=== PATIENT | male | born 1945 | race Caucasian/White ===

== ENCOUNTER 2016-09-04 02:58 | Emergency (ER) | payer MEDICARE, MEDICAID ==
[~2016-09-04] VITALS: Ht 175.3 cm; Wt 90.9 kg
[~2016-09-04 02:58] MED LIST: ALD2525 PO; ATOR10TA PO; DILANTIN PO; FESO4TAB PO; MEMA28CA PO; TERA2CAP53 PO
[2016-09-04] MEDS ORDERED: ONDANSETRON HCL 4MG/2ML VIAL IV STA (04:30)
[2016-09-04] MEDS ORDERED: SODIUM CHLORIDE 0.9% 1,000 ML IV ONE (04:30)
[2016-09-04] MEDS ORDERED: KETOROLAC 30MG/ML VIAL IV STA (04:30)
[2016-09-04 04:53] LABS: BASOPHILS % 0.4 % (0.0-2.0); EOSINOPHILS % 1.4 % (0.0-5.0); HEMOGLOBIN. 12.1 g/dL (14.0-18.0); MEAN CORPUSCULAR HEMOGLOBIN 30.7 pg (28.0-32.0); MEAN CORPUSCULAR HGB CONC 34.7 g/dL (31.0-37.0); MEAN CORPUSCULAR VOLUME 88.7 fL (80.0-94.0); MEAN PLATELET VOLUME 9.5 fl (7.4-10.4); MONOCYTES % 7.9 % (2.0-8.0); NEUTROPHILS % 66.3 % (40.0-76.0); PLATELET 143 x1000/uL (130-400); RED BLOOD CELL COUNT 3.95 mill/uL (4.7-6.1); RED CELL DISTRIBUTION WIDTH 14.7 % (11.6-14.6); WHITE BLOOD COUNT 5.6 x1000/uL (4.5-11.0)
[2016-09-04 04:53] LABS: CLARITY URINE CLEAR (CLEAR); COLOR URINE YELLOW (YELLOW); GLUCOSE URINE NEGATIVE (NEGATIVE); KETONES URINE NEGATIVE (NEGATIVE); LEUKOCYTE ESTERASE URINE NEGATIVE (NEGATIVE); NITRITE URINE NEGATIVE (NEGATIVE); OCCULT BLOOD URINE NEGATIVE (NEGATIVE); PH URINE 7.5 (4.5-8.0); PROTEIN URINE NEGATIVE (NEGATIVE); SPECIFIC GRAVITY URINE 1.016 (1.005-1.030); UROBILINOGEN URINE 0.2 E.U./dL (0.2-1.0)
[2016-09-04 04:59] LABS: ALANINE AMINOTRANSFERASE 10 IU/L (13-61); ALBUMIN 3.3 g/dL (3.4-5.0); ANION GAP 13; CALCIUM 8.5 mg/dL (8.5-10.1); CARBON DIOXIDE 26 mEq/L (21-32); CHLORIDE 107 mEq/L (98-107); INDEX HEMOLYSI 1 (1-3); INDEX ICTERIC 1 (1-4); INDEX LIPEMIC 1 (1-3); LIPASE 108 IU/L (73-393); UREA NITROGEN BLOOD 19 mg/dL (7-21); eGFR > 60 mL/min (>60)
[2016-09-04] MEDS ORDERED: MORPHINE SULFATE 4 MG/ML CPJ (NOT FOR IM USE) IV ONE (05:45)
[2016-09-04 06:00] VITALS: BP 141/85
== END 2016-09-04 06:38 | disposition home or self-care (01) ==
LOC: ER 02:59
DX: K40.90 Unilateral inguinal hernia, without obstruction or gangrene, not specified as recurrent (principal); I10 Essential (primary) hypertension; Z79.899 Other long term (current) drug therapy; Z86.73 Personal history of transient ischemic attack (TIA), and cerebral infarction without residual deficits
CPT/HCPCS: 36415; 74176; 80053; 81003; 83690; 85025; 96361; 96374; 96375; 99285; J1885; J2270; J2405; J7030

== ENCOUNTER 2017-01-16 07:06 | Inpatient (IN) | payer MEDICARE, MEDICAID ==
[~2017-01-16] VITALS: Ht 175.3 cm; Wt 103.9 kg
[~2017-01-16 07:06] MED LIST changes: +TERA2CAP4 PO; -TERA2CAP53 PO
[2017-01-16] MEDS ORDERED: ONDANSETRON HCL 4MG/2ML VIAL IV ONE (07:45)
[2017-01-16 07:58] LABS: BASOPHILS % 0.7 % (0.0-2.0); HEMATOCRIT. 34.8 % (42.0-52.0); HEMOGLOBIN. 11.9 g/dL (14.0-18.0); LYMPHOCYTES % 21.4 % (20.0-50.0); MEAN CORPUSCULAR HEMOGLOBIN 30.6 pg (28.0-32.0); MEAN CORPUSCULAR VOLUME 89.3 fL (80.0-94.0); MEAN PLATELET VOLUME 9.8 fl (7.4-10.4); MONOCYTES % 7.2 % (2.0-8.0); NEUTROPHILS % 69.7 % (40.0-76.0); PLATELET 155 x1000/uL (130-400); RED CELL DISTRIBUTION WIDTH 13.6 % (11.6-14.6)
[2017-01-16 08:03] LABS: PROTHROMBIN TIME 10.8 sec (9.4-11.6)
[2017-01-16 08:13] LABS: CARBON DIOXIDE 29 mEq/L (21-32); CHLORIDE 107 mEq/L (98-107); TROPONIN I < 0.02 ng/mL (0.00-0.04)
[2017-01-16] MEDS ORDERED: MORPHINE SULFATE 4 MG/ML CPJ (NOT FOR IM USE) IV ONE (09:15)
[2017-01-16] MEDS ORDERED: DOCUSATE SODIUM 100MG CAPSULE PO PRN (11:30)
[2017-01-16] MEDS ORDERED: IPRATROPIUM/ALBUTEROL 0.5-3(2.5)MG/3ML NEB INH PRN (11:30)
[2017-01-16] MEDS ORDERED: GUAIFENESIN 200MG/10ML SUGAR FREE UDC PO PRN (11:30)
[2017-01-16] MEDS ORDERED: NA PHOS,M-B/NA PHOS,DI-BA ENEMA 118ML PR PRN (11:30)
[2017-01-16] MEDS ORDERED: MAGNESIUM/ALUMINUM HYDROXIDE/SIMETHICONE 30ML UDC PO PRN (11:30)
[2017-01-16] MEDS ORDERED: CLONIDINE 0.1MG TABLET PO PRN (11:30)
[2017-01-16] MEDS ORDERED: DIPHENHYDRAMINE 50MG/ML VIAL IV PRN (11:30)
[2017-01-16] MEDS ORDERED: ONDANSETRON HCL 4MG/2ML VIAL IV PRN (11:30)
[2017-01-16] MEDS ORDERED: ACETAMINOPHEN 325MG TABLET PO PRN (11:30)
[2017-01-16 14:43] VITALS: BP 143/85
[2017-01-16 15:08] VITALS: BP 143/85
[2017-01-16] MEDS: NITROGLYCERIN 0.4MG TABLET SL SL PRN ×2 (15:13→15:44)
[2017-01-16] MEDS: ENOXAPARIN 30MG/0.3ML SYR SUBCUT SCH (15:43)
[2017-01-16 16:00] VITALS: BP 135/78
[2017-01-16 16:51] LABS: *AMPHETAMINES SCREEN URINE NEGATIVE (NEGATIVE); *BARBITURATES SCREEN URINE NEGATIVE (NEGATIVE); *BENZODIAZEPINES SCREEN URINE NEGATIVE (NEGATIVE); *COCAINE SCREEN URINE NEGATIVE (NEGATIVE); CANNABINOID URINE SCREEN NEGATIVE (NEGATIVE); METHADONE URINE SCREEN NEGATIVE (NEGATIVE); OPIATES URINE SCREEN PRESUMTIVE POSITIVE (NEGATIVE); PHENCYCLIDINE URINE SCREEN NEGATIVE (NEGATIVE)
[2017-01-16] MEDS: KETOROLAC 15MG/ML VIAL IV PRN (18:05)
[2017-01-16 18:10] LABS: CREATINE KINASE 52 IU/L (39-308); CREATINE KINASE MB FRACTION < 0.5 ng/mL (0.5-3.6); TROPONIN I < 0.02 ng/mL (0.00-0.04)
[2017-01-16 20:00] VITALS: BP 109/71
[2017-01-16] MEDS ORDERED: ZOLPIDEM TARTRATE 5MG TABLET PO PRN (21:00)
[2017-01-16] MEDS: FAMOTIDINE 20MG/2ML VIAL IV SCH (21:28)
[2017-01-17] VITALS: BP 122/76
[2017-01-17] MEDS: KETOROLAC 15MG/ML VIAL IV PRN ×2 (00:36→06:29)
[2017-01-17 01:53] LABS: CREATINE KINASE 48 IU/L (39-308); CREATINE KINASE MB FRACTION < 0.5 ng/mL (0.5-3.6); TROPONIN I < 0.02 ng/mL (0.00-0.04)
[2017-01-17 04:00] VITALS: BP 117/62
[2017-01-17] MEDS: ENOXAPARIN 30MG/0.3ML SYR SUBCUT SCH ×2 (06:28→17:29)
[2017-01-17 08:00] VITALS: BP 131/77
[2017-01-17] MEDS: ASPIRIN 325MG EC TABLET PO SCH (08:55)
[2017-01-17] MEDS: FAMOTIDINE 20MG/2ML VIAL IV SCH ×2 (09:24→21:22)
[2017-01-17 12:00] VITALS: BP 102/70
[2017-01-17 16:00] VITALS: BP 126/83
[2017-01-17 20:00] VITALS: BP 149/74
[2017-01-18] VITALS: BP 106/68
[2017-01-18 04:00] VITALS: BP 117/75
[2017-01-18] MEDS: ENOXAPARIN 30MG/0.3ML SYR SUBCUT SCH ×2 (06:00→17:22)
[2017-01-18 08:00] VITALS: BP 123/81
[2017-01-18] MEDS: ASPIRIN 325MG EC TABLET PO SCH (08:40)
[2017-01-18] MEDS: FAMOTIDINE 20MG/2ML VIAL IV SCH ×2 (09:05→21:58)
[2017-01-18] MEDS: KETOROLAC 15MG/ML VIAL IV PRN ×2 (10:39→17:32)
[2017-01-18 12:00] VITALS: BP 129/83
[2017-01-18 16:00] VITALS: BP 126/75
[2017-01-18] MEDS ORDERED: DIPHENOXYLATE/ATROPINE 2.5/0.025MG TABLET PO PRN (16:00)
[2017-01-18 20:00] VITALS: BP 152/62
[2017-01-18] MEDS ORDERED: ATORVASTATIN CALCIUM 20MG TABLET PO SCH (21:00)
[2017-01-19] VITALS: BP 108/63
[2017-01-19 04:00] VITALS: BP 138/74
[2017-01-19] MEDS: ENOXAPARIN 30MG/0.3ML SYR SUBCUT SCH (05:08)
[2017-01-19 08:00] VITALS: BP 132/77
[2017-01-19] MEDS: ASPIRIN 325MG EC TABLET PO SCH (08:50)
[2017-01-19] MEDS: FAMOTIDINE 20MG/2ML VIAL IV SCH (09:30)
[2017-01-19 11:11] VITALS: BP 130/78
[2017-01-19 12:00] VITALS: BP 124/74
== END 2017-01-19 12:55 | disposition home health service (06) | DRG 313 ==
LOC: ER 07:32 → 7WST 09:49 → EDBEDREQ 09:53 → SUPCPDRO 11:26 → ENRESERV 11:31
PROVIDERS: ADMIT Internal Medicine; ATTEND Internal Medicine
DX: R07.89 Other chest pain (principal); I25.10 Atherosclerotic heart disease of native coronary artery without angina pectoris; E44.1 Mild protein-calorie malnutrition; I48.91 Unspecified atrial fibrillation; G40.909 Epilepsy, unspecified, not intractable, without status epilepticus; I69.351 Hemiplegia and hemiparesis following cerebral infarction affecting right dominant side; E78.5 Hyperlipidemia, unspecified; I10 Essential (primary) hypertension; I44.0 Atrioventricular block, first degree; I69.354 Hemiplegia and hemiparesis following cerebral infarction affecting left non-dominant side; Z79.82 Long term (current) use of aspirin; Z68.33 Body mass index [BMI] 33.0-33.9, adult; Z79.899 Other long term (current) drug therapy
CPT/HCPCS: 36415; 70450; 70551; 71010; 80053; 80061; 80305; 82550; 82553; 83036; 83690; 83880; 84484; 85025; 85610; 93005; 93306; 93880; 93970; 96374; 96375; 97112; 97162; 97166; 97530; 99285; J1650; J1885; J2270; J2405; J3490; J7620

== ENCOUNTER 2017-08-09 09:13 | Emergency (ER) | payer MEDICARE, MEDICAID ==
[~2017-08-09] VITALS: Ht 175.3 cm; Wt 114.0 kg
[~2017-08-09 09:13] MED LIST changes: -ALD2525 PO; -FESO4TAB PO; -MEMA28CA PO; -TERA2CAP4 PO
[2017-08-09] MEDS ORDERED: ALD2525 PO (09:23)
[2017-08-09] MEDS ORDERED: MEMA28CA PO (09:24)
[2017-08-09 10:05] LABS: BASOPHILS % 0.4 % (0.0-2.0); EOSINOPHILS % 0.5 % (0.0-5.0); HEMATOCRIT. 38.4 % (42.0-52.0); HEMOGLOBIN. 13.1 g/dL (14.0-18.0); LYMPHOCYTES % 23.1 % (20.0-50.0); MEAN CORPUSCULAR HEMOGLOBIN 31.4 pg (28.0-32.0); MEAN CORPUSCULAR VOLUME 92.1 fL (80.0-94.0); MEAN PLATELET VOLUME 9.6 fl (7.4-10.4); MONOCYTES % 6.5 % (2.0-8.0); NEUTROPHILS % 69.5 % (40.0-76.0); PLATELET 160 x1000/uL (130-400); RED BLOOD CELL COUNT 4.17 mill/uL (4.7-6.1); RED CELL DISTRIBUTION WIDTH 14.6 % (11.6-14.6)
[2017-08-09 10:09] LABS: CHLORIDE 105 mEq/L (98-107)
[2017-08-09 10:10] LABS: PROTHROMBIN TIME 10.3 sec (9.4-11.6)
[2017-08-09] MEDS ORDERED: OXYCODONE HCL/ACETAMINOPHEN 5/325MG TABLET PO ONE (10:45)
[2017-08-09 12:44] VITALS: BP 132/78
== END 2017-08-09 12:53 | disposition home or self-care (01) ==
LOC: ER 09:21
DX: R51 Headache (principal); I48.91 Unspecified atrial fibrillation; I10 Essential (primary) hypertension; I25.10 Atherosclerotic heart disease of native coronary artery without angina pectoris; Z86.73 Personal history of transient ischemic attack (TIA), and cerebral infarction without residual deficits; I67.82 Cerebral ischemia
CPT/HCPCS: 36415; 70450; 71045; 80053; 82962; 83880; 84484; 85025; 85610; 93005; 99285

== ENCOUNTER 2017-08-23 10:43 | Emergency (ER) | payer MEDICARE, MEDICAID ==
[~2017-08-23] VITALS: Ht 162.6 cm; Wt 105.0 kg
[~2017-08-23 10:43] MED LIST changes: +ALD2525 PO; +MEMA28CA PO
[2017-08-23] MEDS ORDERED: TRAMADOL 50MG TABLET PO ONE (16:00)
[2017-08-23 16:47] VITALS: BP 152/89
== END 2017-08-23 15:04 | disposition home or self-care (01) ==
LOC: ER 12:15
DX: M79.604 Pain in right leg (principal); I10 Essential (primary) hypertension; I69.351 Hemiplegia and hemiparesis following cerebral infarction affecting right dominant side; Z90.49 Acquired absence of other specified parts of digestive tract
CPT/HCPCS: 93971; 99284

== ENCOUNTER 2019-08-05 06:14 | Inpatient (IN) | payer MEDICARE, MEDICAID ==
[~2019-08-05] VITALS: Ht 177.8 cm; Wt 100.2 kg
[~2019-08-05 06:14] MED LIST changes: +ASPI-1497 MT; +HYDR200T35 PO
[2019-08-05] MEDS ORDERED: KETOROLAC 30MG/ML VIAL IV STA (06:39)
[2019-08-05] MEDS ORDERED: MORPHINE SULFATE 4 MG/ML CPJ (NOT FOR IM USE) IV STA (06:39)
[2019-08-05] MEDS ORDERED: ONDANSETRON HCL 4MG/2ML INJ IV STA (06:39)
[2019-08-05 07:08] LABS: HEMATOCRIT. 40.5 % (42.0-52.0); HEMOGLOBIN. 13.8 g/dL (14.0-18.0); MEAN CORPUSCULAR HEMOGLOBIN 32.8 pg (28.0-32.0); MEAN CORPUSCULAR VOLUME 96.1 fL (80.0-94.0); MEAN PLATELET VOLUME 10.7 fl (7.4-10.4); PLATELET 149 x1000/uL (130-400); RED BLOOD CELL COUNT 4.22 mill/uL (4.7-6.1); RED CELL DISTRIBUTION WIDTH 15.5 % (11.6-14.6)
[2019-08-05 07:13] LABS: CHLORIDE 104 mEq/L (98-107)
[2019-08-05 07:17] LABS: ETHANOL BLOOD < 10 mg/dL; PARTIAL THROMBOPLASTIN TIME 28.5 sec (23.4-31.0); PROTHROMBIN TIME 10.6 sec (9.6-11.0)
[2019-08-05 07:30] LABS: PLATELET ESTIMATE NORMAL
[2019-08-05] MEDS ORDERED: LORAZEPAM 2MG/ML CPJ IV ONE ×2 (09:15→10:00)
[2019-08-05] MEDS ORDERED: SODIUM CHLORIDE 0.9% 250 ML IV ONE (09:47)
[2019-08-05] MEDS ORDERED: LEVETIRACETAM 1000MG/100ML 100 ML IV ONE (10:00)
[2019-08-05] MEDS ORDERED: ONDANSETRON HCL 4MG/2ML INJ IV ONE (10:00)
[2019-08-05 11:45] VITALS: BP 100/66
[2019-08-05 12:12] VITALS: BP 100/66
[2019-08-05] MEDS ORDERED: ACETAMINOPHEN 325MG TABLET PO PRN ×2 (13:00)
[2019-08-05] MEDS ORDERED: NA PHOS,M-B/NA PHOS,DI-BA ENEMA 118ML PR PRN (13:00)
[2019-08-05] MEDS ORDERED: ACETAMINOPHEN 650MG/20.3ML UDC GT PRN ×2 (13:00)
[2019-08-05] MEDS ORDERED: MAGNESIUM/ALUMINUM HYDROXIDE/SIMETHICONE 30ML UDC PO PRN (13:00)
[2019-08-05] MEDS ORDERED: GUAIFENESIN 200MG/10ML SUGAR FREE UDC PO PRN (13:00)
[2019-08-05] MEDS ORDERED: HYDROCODONE/ACETAMINOPHEN 10/325MG TABLET PO PRN (13:00)
[2019-08-05] MEDS ORDERED: HYDROCODONE/ACETAMINOPHEN 5/325MG TABLET PO PRN (13:00)
[2019-08-05] MEDS ORDERED: CLONIDINE 0.1MG TABLET PO PRN (13:00)
[2019-08-05] MEDS ORDERED: ACETAMINOPHEN 650MG SUPP PR PRN ×2 (13:00)
[2019-08-05] MEDS ORDERED: HYDROXYCHLOROQUINE SULFATE 200MG TABLET PO SCH (13:15)
[2019-08-05] MEDS ORDERED: MEMANTINE HCL 28 MG PO SCH (13:15)
[2019-08-05] MEDS: ASPIRIN 81MG EC TABLET PO SCH (13:15)
[2019-08-05] MEDS: SODIUM CHLORIDE 0.45% 1,000 ML IV SCH (14:38)
[2019-08-05] MEDS: SODIUM CHLORIDE 0.9% INJ 3ML FLUSH IVF SCH ×2 (14:38→22:28)
[2019-08-05] MEDS: CEFTRIAXONE 1 G PREMIX 50 ML IV SCH (14:40)
[2019-08-05] MEDS: ENOXAPARIN 40MG/0.4ML SYR SUBCUT SCH (14:40)
[2019-08-05 16:00] VITALS: BP 94/68
[2019-08-05 20:00] VITALS: BP 109/78
[2019-08-05] MEDS ORDERED: DILANTIN 300 MG PO SCH (21:00)
[2019-08-05] MEDS: PHENYTOIN SODIUM EXTENDED 100MG CAPSULE PO SCH (22:28)
[2019-08-05] MEDS: MEMANTINE HCL 10MG TABLET PO SCH (22:28)
[2019-08-05] MEDS: ATORVASTATIN CALCIUM 10MG TABLET PO SCH (22:28)
[2019-08-06] VITALS: BP 104/68
[2019-08-06 04:00] VITALS: BP 120/75
[2019-08-06] MEDS: SODIUM CHLORIDE 0.45% 1,000 ML IV SCH ×2 (05:49→22:22)
[2019-08-06] MEDS: SODIUM CHLORIDE 0.9% INJ 3ML FLUSH IVF SCH ×3 (05:50→22:22)
[2019-08-06 07:09] LABS: CLARITY URINE CLEAR (CLEAR); COLOR URINE YELLOW (YELLOW); KETONES URINE NEGATIVE (NEGATIVE); LEUKOCYTE ESTERASE URINE NEGATIVE (NEGATIVE); NITRITE URINE NEGATIVE (NEGATIVE); OCCULT BLOOD URINE NEGATIVE (NEGATIVE); PH URINE 5.5 (4.5-8.0); PROTEIN URINE NEGATIVE (NEGATIVE); SPECIFIC GRAVITY URINE 1.017 (1.005-1.030); UROBILINOGEN URINE 0.2 E.U./dL (0.2-1.0)
[2019-08-06 07:25] LABS: *AMPHETAMINES SCREEN URINE NEGATIVE (NEGATIVE); *BARBITURATES SCREEN URINE NEGATIVE (NEGATIVE); *BENZODIAZEPINES SCREEN URINE NEGATIVE (NEGATIVE); *COCAINE SCREEN URINE NEGATIVE (NEGATIVE); CANNABINOID URINE SCREEN NEGATIVE (NEGATIVE); METHADONE URINE SCREEN NEGATIVE (NEGATIVE); OPIATES URINE SCREEN PRESUMTIVE POSITIVE (NEGATIVE); PHENCYCLIDINE URINE SCREEN NEGATIVE (NEGATIVE)
[2019-08-06 08:00] VITALS: BP 120/74
[2019-08-06] MEDS: ASPIRIN 81MG EC TABLET PO SCH (09:42)
[2019-08-06] MEDS: MEMANTINE HCL 10MG TABLET PO SCH ×2 (09:42→20:41)
[2019-08-06 10:04] LABS: HEMATOCRIT. 40.9 % (42.0-52.0); HEMOGLOBIN. 13.8 g/dL (14.0-18.0); MEAN CORPUSCULAR HEMOGLOBIN 33.2 pg (28.0-32.0); MEAN CORPUSCULAR VOLUME 98.2 fL (80.0-94.0); MEAN PLATELET VOLUME 9.8 fl (7.4-10.4); PLATELET 131 x1000/uL (130-400); RED BLOOD CELL COUNT 4.17 mill/uL (4.7-6.1); RED CELL DISTRIBUTION WIDTH 15.2 % (11.6-14.6)
[2019-08-06 10:12] LABS: CHLORIDE 103 mEq/L (98-107)
[2019-08-06 10:21] LABS: HDL CHOLESTEROL 34 mg/dL (40-59); LDL CHOLESTEROL 129 mg/dL (5-100)
[2019-08-06] MEDS ORDERED: PHENYTOIN SODIUM EXTENDED 100MG CAPSULE PO NR (11:45)
[2019-08-06 12:00] VITALS: BP 114/75
[2019-08-06] MEDS: DOCUSATE SODIUM 100MG CAPSULE PO PRN (12:58)
[2019-08-06 14:26] LABS: PLATELET ESTIMATE NORMAL
[2019-08-06] MEDS: CEFTRIAXONE 1 G PREMIX 50 ML IV SCH (14:55)
[2019-08-06] MEDS: ENOXAPARIN 40MG/0.4ML SYR SUBCUT SCH (14:56)
[2019-08-06] MEDS: MENTHOL/LANOLIN/CALAMINE/ZN OX OINT 71GM TOP SCH (14:57)
[2019-08-06 16:00] VITALS: BP 123/76
[2019-08-06] MEDS: LIDOCAINE 5% PATCH TOP SCH (17:51)
[2019-08-06 20:00] VITALS: BP 118/71
[2019-08-06 20:30] LABS: BASOPHILS % 0.5 % (0.0-2.0); EOSINOPHILS % 0.7 % (0.0-5.0); HEMATOCRIT. 42.4 % (42.0-52.0); HEMOGLOBIN. 14.3 g/dL (14.0-18.0); LYMPHOCYTES % 13.7 % (20.0-50.0); MEAN CORPUSCULAR VOLUME 97.7 fL (80.0-94.0); MEAN PLATELET VOLUME 10.2 fl (7.4-10.4); MONOCYTES % 3.9 % (2.0-8.0); NEUTROPHILS % 81.2 % (40.0-76.0); PLATELET 150 x1000/uL (130-400); RED BLOOD CELL COUNT 4.34 mill/uL (4.7-6.1)
[2019-08-06 20:35] LABS: CHLORIDE 104 mEq/L (98-107)
[2019-08-06] MEDS: PHENYTOIN SODIUM EXTENDED 100MG CAPSULE PO SCH (20:41)
[2019-08-06] MEDS: ATORVASTATIN CALCIUM 10MG TABLET PO SCH (20:41)
[2019-08-07] VITALS: BP 105/56
[2019-08-07] MEDS: MENTHOL/LANOLIN/CALAMINE/ZN OX OINT 71GM TOP SCH ×2 (00:07→12:03)
[2019-08-07] MEDS: DOCUSATE SODIUM 100MG CAPSULE PO PRN (02:09)
[2019-08-07 04:00] VITALS: BP 107/71
[2019-08-07] MEDS: SODIUM CHLORIDE 0.9% INJ 3ML FLUSH IVF SCH ×2 (05:05→13:12)
[2019-08-07 08:30] VITALS: BP 113/69
[2019-08-07] MEDS: ASPIRIN 81MG EC TABLET PO SCH (08:45)
[2019-08-07] MEDS: MEMANTINE HCL 10MG TABLET PO SCH (08:45)
[2019-08-07] MEDS: LIDOCAINE 5% PATCH TOP SCH (08:49)
[2019-08-07] MEDS ORDERED: ENOXAPARIN 30MG/0.3ML SYR SUBCUT SCH (09:00)
[2019-08-07] MEDS ORDERED: MENT71OI TOP (10:22)
[2019-08-07 12:00] VITALS: BP 114/87
[2019-08-07 12:48] VITALS: BP 120/72
== END 2019-08-07 15:00 | disposition home or self-care (01) | DRG 101 ==
LOC: ER 06:14 → EDBEDREQ 10:00 → EDBEDREQTM 10:00 → ENRESERV 10:51 → 5WST 11:34
PROVIDERS: ADMIT Family Medicine; ATTEND Family Medicine
DX: G40.909 Epilepsy, unspecified, not intractable, without status epilepticus (principal); I10 Essential (primary) hypertension; K57.90 Diverticulosis of intestine, part unspecified, without perforation or abscess without bleeding; F03.90 Unspecified dementia, unspecified severity, without behavioral disturbance, psychotic disturbance, mood disturbance, and anxiety; R00.1 Bradycardia, unspecified; K40.90 Unilateral inguinal hernia, without obstruction or gangrene, not specified as recurrent; E78.5 Hyperlipidemia, unspecified; D64.9 Anemia, unspecified; Z79.82 Long term (current) use of aspirin; Z86.73 Personal history of transient ischemic attack (TIA), and cerebral infarction without residual deficits; Z90.49 Acquired absence of other specified parts of digestive tract; Z79.899 Other long term (current) drug therapy
CPT/HCPCS: 36415; 71045; 72100; 74176; 80053; 80061; 80185; 80305; 80320; 81003; 83880; 84145; 84443; 84484; 85025; 93005; 93306; 97116; 97162; 99285; J0696; J1650; J1885; J1953; J2060; J2270; J2405; J7050; G0480

== ENCOUNTER 2019-09-06 09:19 | Inpatient (IN) | payer MEDICARE, MEDICAID ==
[~2019-09-06] VITALS: Ht 177.8 cm; Wt 94.8 kg
[2019-09-06] MEDS ORDERED: ALTEPLASE 81 MG in BAG 1 EACH IV STA (10:00)
[2019-09-06] MEDS ORDERED: ALTEPLASE 100MG/VIAL IV STA (10:00)
[2019-09-06 10:14] LABS: HEMATOCRIT. 41.9 % (42.0-52.0); HEMOGLOBIN. 14.4 g/dL (14.0-18.0); MEAN CORPUSCULAR HEMOGLOBIN 33.5 pg (28.0-32.0); MEAN CORPUSCULAR VOLUME 97.1 fL (80.0-94.0); MEAN PLATELET VOLUME 9.6 fl (7.4-10.4); PLATELET 166 x1000/uL (130-400); RED BLOOD CELL COUNT 4.31 mill/uL (4.7-6.1)
[2019-09-06 10:22] LABS: CHLORIDE 104 mEq/L (98-107); PROTHROMBIN TIME 10.5 sec (9.6-11.0)
[2019-09-06] MEDS ORDERED: *NO ASPIRIN X 24 HOURS XX SCH (10:25)
[2019-09-06] MEDS ORDERED: ALTEPLASE 100MG/VIAL IV NR (10:25)
[2019-09-06] MEDS ORDERED: ALTEPLASE 81 MG in CONTAINER,EMPTY 1 BAG IV SCH (10:26)
[2019-09-06 10:28] LABS: ETHANOL BLOOD < 10 mg/dL
[2019-09-06 10:30] LABS: LDL CHOLESTEROL 166 mg/dL (5-100)
[2019-09-06 11:09] LABS: PLATELET ESTIMATE NORMAL
[2019-09-06] MEDS ORDERED: ACETAMINOPHEN 325MG TABLET PO PRN (14:15)
[2019-09-06] MEDS ORDERED: ONDANSETRON HCL 4MG/2ML INJ IV PRN (14:15)
[2019-09-06] MEDS ORDERED: ATORVASTATIN CALCIUM 40MG TABLET PO SCH (21:00)
[2019-09-07] VITALS (43 sets, daily range): BP systolic 97–143; BP diastolic 60–94
[2019-09-07] MEDS ORDERED: PRED-431 PO (06:36)
[2019-09-07] MEDS ORDERED: FOLI-43 MT (06:36)
[2019-09-07] MEDS ORDERED: PHEN50TA2 PO (06:36)
[2019-09-07] MEDS ORDERED: METH2.5T PO (06:36)
[2019-09-07] MEDS ORDERED: LINA290C MT (06:39)
[2019-09-07 09:47] LABS: BASOPHILS % 0.5 % (0.0-2.0); EOSINOPHILS % 0.7 % (0.0-5.0); HEMATOCRIT. 40.7 % (42.0-52.0); HEMOGLOBIN. 13.9 g/dL (14.0-18.0); LYMPHOCYTES % 23.4 % (20.0-50.0); MEAN CORPUSCULAR HEMOGLOBIN 33.3 pg (28.0-32.0); MEAN CORPUSCULAR VOLUME 97.6 fL (80.0-94.0); MEAN PLATELET VOLUME 10.2 fl (7.4-10.4); MONOCYTES % 5.9 % (2.0-8.0); NEUTROPHILS % 69.5 % (40.0-76.0); PLATELET 147 x1000/uL (130-400); RED BLOOD CELL COUNT 4.17 mill/uL (4.7-6.1); RED CELL DISTRIBUTION WIDTH 14.8 % (11.6-14.6)
[2019-09-07] MEDS ORDERED: LACTULOSE 20G/30ML UDC PO NR (10:30)
[2019-09-07] MEDS: DOCUSATE SODIUM 250MG CAPSULE PO SCH (11:16)
[2019-09-07] MEDS ORDERED: ATORVASTATIN CALCIUM 40MG TABLET PO SCH (21:00)
[2019-09-07] MEDS ORDERED: PHENYTOIN SODIUM EXTENDED 100MG CAPSULE PO SCH (21:00)
[2019-09-07] MEDS ORDERED: IOHEXOL-350 100 ML BOTTLE ONE (21:33)
[2019-09-08] VITALS: BP 111/75
[2019-09-08 00:02] VITALS: BP 111/75
[2019-09-08 04:00] VITALS: BP 111/75
[2019-09-08 07:38] LABS: HEMATOCRIT. 42.2 % (42.0-52.0); HEMOGLOBIN. 14.6 g/dL (14.0-18.0); MEAN CORPUSCULAR HEMOGLOBIN 33.4 pg (28.0-32.0); MEAN CORPUSCULAR VOLUME 96.4 fL (80.0-94.0); MEAN PLATELET VOLUME 9.9 fl (7.4-10.4); PLATELET 171 x1000/uL (130-400); RED BLOOD CELL COUNT 4.38 mill/uL (4.7-6.1); RED CELL DISTRIBUTION WIDTH 14.9 % (11.6-14.6)
[2019-09-08] MEDS: DOCUSATE SODIUM 250MG CAPSULE PO SCH (10:57)
[2019-09-08] MEDS: APIXABAN 5 MG TABLET PO SCH ×2 (11:34→18:00)
[2019-09-08] MEDS ORDERED: FOLIC ACID 1MG TABLET PO SCH (12:30)
[2019-09-08 12:48] LABS: PLATELET ESTIMATE NORMAL
[2019-09-08] MEDS ORDERED: PREDNISONE 5MG TABLET PO SCH (13:00)
[2019-09-08] MEDS ORDERED: APIX5TAB PO (14:04)
[2019-09-08] MEDS ORDERED: LIP40 PO (14:04)
[2019-09-08 15:30] VITALS: BP 114/87
[2019-09-08] MEDS ORDERED: PHENYTOIN SODIUM EXTENDED 100MG CAPSULE PO NR (16:30)
[2019-09-13] MEDS ORDERED: METHOTREXATE SODIUM 2 . 5MG TABLET PO SCH (09:00)
== END 2019-09-08 20:30 | disposition home or self-care (01) | DRG 61 ==
LOC: ER 09:19 → EDBEDREQTM 11:43 → EDBEDREQ 11:43 → CVICU 12:57 → EDBEDREQSVC 13:00 → EDBEDREQTM 13:00 → ENRESERV 23:35 → 6WST 09-07 21:50
PROVIDERS: ADMIT Internal Medicine; ATTEND Internal Medicine
PROC: 3E03317 Introduction of Other Thrombolytic into Peripheral Vein, Percutaneous Approach (ICD-10-PCS; principal; 2019-09-06)
PROC: 02HV33Z Insertion of Infusion Device into Superior Vena Cava, Percutaneous Approach (ICD-10-PCS; 2019-09-07)
PROC: B548ZZA Ultrasonography of Superior Vena Cava, Guidance (ICD-10-PCS; 2019-09-07)
DX: I63.9 Cerebral infarction, unspecified (principal); N17.0 Acute kidney failure with tubular necrosis; I42.9 Cardiomyopathy, unspecified; G81.91 Hemiplegia, unspecified affecting right dominant side; I50.32 Chronic diastolic (congestive) heart failure; E66.9 Obesity, unspecified; E78.5 Hyperlipidemia, unspecified; G40.909 Epilepsy, unspecified, not intractable, without status epilepticus; I11.0 Hypertensive heart disease with heart failure; K59.00 Constipation, unspecified; I44.0 Atrioventricular block, first degree; I25.10 Atherosclerotic heart disease of native coronary artery without angina pectoris; R00.1 Bradycardia, unspecified; I34.0 Nonrheumatic mitral (valve) insufficiency; Z79.82 Long term (current) use of aspirin; Z91.19 Patient's noncompliance with other medical treatment and regimen; Z87.891 Personal history of nicotine dependence
CPT/HCPCS: 36415; 70496; 70551; 71045; 76937; 80048; 80053; 80061; 80185; 80320; 82962; 83721; 83735; 84484; 85025; 92610; 93005; 93880; 95816; 97116; 97162; 97166; 97530; 99291; C1725; J2997; J7060; J7512; Q9967; G0480

== ENCOUNTER 2019-10-22 11:03 | Inpatient (IN) | payer MEDICARE, MEDICAID ==
[~2019-10-22] VITALS: Ht 175.3 cm; Wt 97.1 kg
[~2019-10-22 11:03] MED LIST changes: -ALD2525 PO; +APIX5TAB PO; -ASPI-1497 MT; -ATOR10TA PO; -DILANTIN PO; +FOLI-43 MT; -HYDR200T35 PO; +LINA290C MT; +LIP40 PO; +METH2.5T PO; +PHEN50TA2 PO; +PRED-431 PO
[2019-10-22] MEDS ORDERED: MORPHINE SULFATE 4 MG/ML CPJ (NOT FOR IM USE) IV STA (15:27)
[2019-10-22] MEDS ORDERED: SODIUM CHLORIDE 0.9% 1,000 ML IV ONE (15:27)
[2019-10-22] MEDS ORDERED: ONDANSETRON HCL 4MG/2ML INJ IV STA (15:27)
[2019-10-22 16:04] LABS: BASOPHILS % 0.2 % (0.0-2.0); EOSINOPHILS % 0.5 % (0.0-5.0); HEMATOCRIT. 42.9 % (42.0-52.0); LYMPHOCYTES % 27.8 % (20.0-50.0); MEAN CORPUSCULAR HEMOGLOBIN 33.5 pg (28.0-32.0); MEAN PLATELET VOLUME 9.3 fl (7.4-10.4); NEUTROPHILS % 64.5 % (40.0-76.0); PLATELET 188 x1000/uL (130-400); RED BLOOD CELL COUNT 4.47 mill/uL (4.7-6.1); RED CELL DISTRIBUTION WIDTH 14.6 % (11.6-14.6)
[2019-10-22 16:16] LABS: CHLORIDE 103 mEq/L (98-107)
[2019-10-22] MEDS ORDERED: VALACYCLOVIR HCL 500MG TABLET PO STA (17:27)
[2019-10-22 19:33] LABS: CLARITY URINE CLEAR (CLEAR); COLOR URINE YELLOW (YELLOW); KETONES URINE 1+ (NEGATIVE); LEUKOCYTE ESTERASE URINE NEGATIVE (NEGATIVE); NITRITE URINE NEGATIVE (NEGATIVE); OCCULT BLOOD URINE NEGATIVE (NEGATIVE); PH URINE 5.5 (4.5-8.0); PROTEIN URINE NEGATIVE (NEGATIVE); SPECIFIC GRAVITY URINE 1.024 (1.005-1.030)
[2019-10-22 20:00] LABS: *AMPHETAMINES SCREEN URINE NEGATIVE (NEGATIVE)
[2019-10-22 20:01] LABS: *BENZODIAZEPINES SCREEN URINE NEGATIVE (NEGATIVE); *COCAINE SCREEN URINE NEGATIVE (NEGATIVE); CANNABINOID URINE SCREEN NEGATIVE (NEGATIVE); METHADONE URINE SCREEN NEGATIVE (NEGATIVE); PHENCYCLIDINE URINE SCREEN NEGATIVE (NEGATIVE)
[2019-10-22 20:03] LABS: OPIATES URINE SCREEN PRESUMTIVE POSITIVE (NEGATIVE)
[2019-10-22 20:04] LABS: *BARBITURATES SCREEN URINE NEGATIVE (NEGATIVE)
[2019-10-22] MEDS ORDERED: MORPHINE SULFATE 2 MG/ML CPJ (NOT FOR IM USE) IV STA (20:46)
[2019-10-22] MEDS ORDERED: ONDANSETRON HCL 4MG/2ML INJ IV PRN (22:45)
[2019-10-22] MEDS ORDERED: MORPHINE SULFATE 2 MG/ML CPJ (NOT FOR IM USE) IV PRN (22:45)
[2019-10-22] MEDS ORDERED: DIPHENHYDRAMINE 50MG/ML VIAL IV PRN (22:45)
[2019-10-22] MEDS ORDERED: ACETAMINOPHEN 325MG TABLET PO PRN (22:45)
[2019-10-22] MEDS ORDERED: HYDROCODONE/ACETAMINOPHEN 10/325MG TABLET PO PRN (22:45)
[2019-10-22] MEDS ORDERED: GUAIFENESIN 200MG/10ML SUGAR FREE UDC PO PRN (22:45)
[2019-10-22] MEDS ORDERED: HYDRALAZINE 20MG/ML VIAL IV PRN (22:45)
[2019-10-22] MEDS ORDERED: LORAZEPAM 2MG/ML CPJ IV PRN (22:45)
[2019-10-22] MEDS ORDERED: IPRATROPIUM/ALBUTEROL 0.5-3(2.5)MG/3ML NEB HHN PRN (22:45)
[2019-10-22] MEDS ORDERED: MAGNESIUM/ALUMINUM HYDROXIDE/SIMETHICONE 30ML UDC PO PRN (22:45)
[2019-10-22] MEDS ORDERED: CLONIDINE 0.1MG TABLET PO PRN (22:45)
[2019-10-22] MEDS ORDERED: DOCUSATE SODIUM 100MG CAPSULE PO PRN (22:45)
[2019-10-22 23:30] VITALS: BP 109/75
[2019-10-23] MEDS ORDERED: ALD2525 MT (01:59)
[2019-10-23 04:54] VITALS: BP 122/60
[2019-10-23] MEDS: SODIUM CHLORIDE 0.9% INJ 3ML FLUSH IVF SCH ×3 (05:30→21:08)
[2019-10-23 06:14] LABS: HEMATOCRIT. 40.4 % (42.0-52.0); MEAN CORPUSCULAR HEMOGLOBIN 33.4 pg (28.0-32.0); MEAN CORPUSCULAR VOLUME 96.3 fL (80.0-94.0); MEAN PLATELET VOLUME 9.7 fl (7.4-10.4); PLATELET 163 x1000/uL (130-400); RED BLOOD CELL COUNT 4.19 mill/uL (4.7-6.1); RED CELL DISTRIBUTION WIDTH 14.5 % (11.6-14.6)
[2019-10-23 06:19] LABS: CHLORIDE 104 mEq/L (98-107)
[2019-10-23 06:28] LABS: CREATINE KINASE 44 IU/L (39-308)
[2019-10-23 06:32] LABS: CREATINE KINASE MB FRACTION 1.8 ng/mL (0.5-3.6)
[2019-10-23 08:00] VITALS: BP 110/80
[2019-10-23] MEDS: ENOXAPARIN 30MG/0.3ML SYR SUBCUT SCH ×3 (08:52→21:08)
[2019-10-23] MEDS: BISACODYL 10MG SUPP PR NR ×2 (08:55→09:26)
[2019-10-23 12:00] VITALS: BP 115/80
[2019-10-23 16:00] VITALS: BP 109/69
[2019-10-23 16:48] LABS: CREATINE KINASE 45 IU/L (39-308)
[2019-10-23 16:49] LABS: CREATINE KINASE MB FRACTION 1.6 ng/mL (0.5-3.6)
[2019-10-23 20:00] VITALS: BP 114/75
[2019-10-24] VITALS: BP 114/75
[2019-10-24 04:00] VITALS: BP 117/71
[2019-10-24] MEDS: SODIUM CHLORIDE 0.9% INJ 3ML FLUSH IVF SCH ×2 (05:41→14:00)
[2019-10-24 08:00] VITALS: BP 113/77
[2019-10-24] MEDS: ENOXAPARIN 30MG/0.3ML SYR SUBCUT SCH (09:40)
[2019-10-24 10:12] LABS: T4 FREE 1.12 ng/dL (0.76-1.46)
[2019-10-24] MEDS: ACYCLOVIR 400 MG TABLET PO SCH ×3 (11:43→13:48)
[2019-10-24 12:00] VITALS: BP 108/79
[2019-10-24 13:40] LABS: PLATELET ESTIMATE NORMAL
[2019-10-24 16:00] VITALS: BP 119/76
[2019-10-24] MEDS ORDERED: APIXABAN 5 MG TABLET PO SCH (17:00)
[2019-10-24 17:27] VITALS: BP 119/76
[2019-10-24] MEDS ORDERED: ATORVASTATIN CALCIUM 40MG TABLET PO SCH (21:00)
== END 2019-10-24 18:40 | disposition home or self-care (01) | DRG 595 ==
LOC: ER 11:03 → MICUSO 17:46 → 8WST 21:49
PROVIDERS: ADMIT Internal Medicine; ATTEND Internal Medicine
DX: B02.9 Zoster without complications (principal); N17.0 Acute kidney failure with tubular necrosis; K59.00 Constipation, unspecified; M47.9 Spondylosis, unspecified; M48.02 Spinal stenosis, cervical region; M32.9 Systemic lupus erythematosus, unspecified; I12.9 Hypertensive chronic kidney disease with stage 1 through stage 4 chronic kidney disease, or unspecified chronic kidney disease; N18.9 Chronic kidney disease, unspecified; G30.9 Alzheimer's disease, unspecified; F02.80 Dementia in other diseases classified elsewhere, unspecified severity, without behavioral disturbance, psychotic disturbance, mood disturbance, and anxiety; G40.909 Epilepsy, unspecified, not intractable, without status epilepticus; M54.12 Radiculopathy, cervical region; M19.90 Unspecified osteoarthritis, unspecified site; N27.1 Small kidney, bilateral; Z86.73 Personal history of transient ischemic attack (TIA), and cerebral infarction without residual deficits; Z90.49 Acquired absence of other specified parts of digestive tract
CPT/HCPCS: 36415; 70551; 71045; 73030; 74176; 80048; 80053; 80061; 80305; 81003; 82550; 82553; 83880; 84439; 84443; 84484; 85025; 93005; 99285; J1650; J2270; J2405; J7030

== ENCOUNTER → 2020-05-16 | Outpatient (CLI) | payer MEDICARE, MEDICAID ==
[~2020-05-16] MED LIST changes: +ALD2525 MT
== END | disposition home or self-care (01) ==
LOC: MRI 13:29
PROVIDERS: ATTEND Neurological Surgery
DX: G31.1 Senile degeneration of brain, not elsewhere classified (principal); I67.82 Cerebral ischemia; I63.81 Other cerebral infarction due to occlusion or stenosis of small artery
CPT/HCPCS: 70551

== ENCOUNTER 2021-02-13 06:07 | Inpatient (IN) | payer MEDICARE, MEDICAID ==
[~2021-02-13] VITALS: Ht 175.3 cm; Wt 95.3 kg
[~2021-02-13 06:07] MED LIST changes: +MECL-159 MT
[2021-02-13] MEDS ORDERED: SODIUM CHLORIDE 0.9% 250 ML IV ONE (06:30)
[2021-02-13] MEDS ORDERED: MORPHINE SULFATE 4 MG/ML CPJ (NOT FOR IM USE) IV STA (06:43)
[2021-02-13] MEDS ORDERED: ONDANSETRON HCL 4MG/2ML INJ IV STA (06:43)
[2021-02-13 06:48] LABS: BASOPHILS % 0.9 % (0.0-2.0); EOSINOPHILS % 0.6 % (0.0-5.0); HEMATOCRIT. 39.5 % (42.0-52.0); HEMOGLOBIN. 13.5 g/dL (14.0-18.0); LYMPHOCYTES % 24.5 % (20.0-50.0); MEAN CORPUSCULAR HEMOGLOBIN 31.8 pg (28.0-32.0); MEAN CORPUSCULAR VOLUME 93.6 fL (80.0-94.0); MEAN PLATELET VOLUME 9.6 fl (7.4-10.4); MONOCYTES % 6.1 % (2.0-8.0); NEUTROPHILS % 67.9 % (40.0-76.0); PLATELET 173 x1000/uL (130-400); RED BLOOD CELL COUNT 4.22 mill/uL (4.7-6.1); RED CELL DISTRIBUTION WIDTH 14.5 % (11.6-14.6)
[2021-02-13 06:54] LABS: CHLORIDE 108 mEq/L (98-107)
[2021-02-13] MEDS ORDERED: MORPHINE SULFATE 2 MG/ML CPJ (NOT FOR IM USE) IV STA (07:05)
[2021-02-13 07:06] LABS: PROTHROMBIN TIME 10.8 sec (9.6-11.0)
[2021-02-13] MEDS ORDERED: PHENYTOIN SODIUM 1,000 MG in SODIUM CHLORIDE 0.9% 100 ML IV ONE (09:00)
[2021-02-13 09:29] LABS: CLARITY URINE CLEAR (CLEAR); COLOR URINE YELLOW (YELLOW); KETONES URINE NEGATIVE (NEGATIVE); LEUKOCYTE ESTERASE URINE NEGATIVE (NEGATIVE); NITRITE URINE NEGATIVE (NEGATIVE); OCCULT BLOOD URINE NEGATIVE (NEGATIVE); PROTEIN URINE NEGATIVE (NEGATIVE); SPECIFIC GRAVITY URINE 1.017 (1.005-1.030)
[2021-02-13] MEDS ORDERED: MAGNESIUM/ALUMINUM HYDROXIDE/SIMETHICONE 30ML UDC PO PRN (11:30)
[2021-02-13] MEDS ORDERED: GUAIFENESIN 200MG/10ML SUGAR FREE UDC PO PRN (11:30)
[2021-02-13] MEDS ORDERED: ACETAMINOPHEN 325MG TABLET PO PRN ×2 (11:30)
[2021-02-13] MEDS ORDERED: CLONIDINE 0.1MG TABLET PO PRN (11:30)
[2021-02-13] MEDS ORDERED: IPRATROPIUM/ALBUTEROL 0.5-3(2.5)MG/3ML NEB NEB PRN (11:30)
[2021-02-13] MEDS ORDERED: DOCUSATE SODIUM 100MG CAPSULE PO PRN (11:30)
[2021-02-13] MEDS ORDERED: ONDANSETRON HCL 4MG/2ML INJ IV PRN (11:30)
[2021-02-13] MEDS ORDERED: NITROGLYCERIN 0.4MG TABLET SL SL PRN (11:30)
[2021-02-13 12:00] VITALS: BP 118/76
[2021-02-13 12:03] LABS: T4 FREE 1.04 ng/dL (0.76-1.46)
[2021-02-13] MEDS ORDERED: NALOXONE HCL 0.4MG/ML VIAL IV PRN (12:15)
[2021-02-13 12:23] LABS: VITAMIN B12 SERUM 311 pg/mL (211-911)
[2021-02-13 12:25] LABS: FOLIC ACID (FOLATE) SERUM > 20.00 ng/mL (>5.38)
[2021-02-13] MEDS: TRAMADOL 50MG TABLET PO PRN ×2 (12:48→17:01)
[2021-02-13 14:16] VITALS: BP 129/92
[2021-02-13 15:59] LABS: CREATINE KINASE 59 IU/L (39-308); CREATINE KINASE MB FRACTION < 1.0 ng/mL (0.5-3.6)
[2021-02-13 16:00] VITALS: BP 109/64
[2021-02-13] MEDS: APIXABAN 5 MG TABLET PO SCH (17:01)
[2021-02-13] MEDS: MORPHINE SULFATE 2 MG/ML CPJ (NOT FOR IM USE) IV PRN ×2 (18:24→23:45)
[2021-02-13] MEDS ORDERED: SODIUM POLYSTYRENE SULFONATE 15 G/60 ML BOT PO NR (19:00)
[2021-02-13 20:00] VITALS: BP 95/55
[2021-02-13] MEDS ORDERED: ZOLPIDEM TARTRATE 5MG TABLET PO PRN (21:00)
[2021-02-13] MEDS: LEVETIRACETAM 500MG TABLET PO SCH (21:17)
[2021-02-13] MEDS: FAMOTIDINE 20MG TABLET PO SCH (21:17)
[2021-02-14] VITALS: BP 102/64
[2021-02-14 04:00] VITALS: BP 124/73
[2021-02-14] MEDS: APIXABAN 5 MG TABLET PO SCH ×2 (06:38→17:24)
[2021-02-14] MEDS: MORPHINE SULFATE 2 MG/ML CPJ (NOT FOR IM USE) IV PRN (06:39)
[2021-02-14 08:00] VITALS: BP 118/69
[2021-02-14 08:14] LABS: BASOPHILS % 0.2 % (0.0-2.0); EOSINOPHILS % 0.7 % (0.0-5.0); HEMATOCRIT. 36.3 % (42.0-52.0); HEMOGLOBIN. 12.1 g/dL (14.0-18.0); LYMPHOCYTES % 25.2 % (20.0-50.0); MEAN CORPUSCULAR HEMOGLOBIN 31.1 pg (28.0-32.0); MEAN CORPUSCULAR VOLUME 93.1 fL (80.0-94.0); MEAN PLATELET VOLUME 9.7 fl (7.4-10.4); MONOCYTES % 5.5 % (2.0-8.0); NEUTROPHILS % 68.4 % (40.0-76.0); PLATELET 178 x1000/uL (130-400); RED CELL DISTRIBUTION WIDTH 14.5 % (11.6-14.6)
[2021-02-14 08:34] LABS: CHLORIDE 103 mEq/L (98-107)
[2021-02-14 08:41] LABS: PHOSPHORUS 2.9 mg/dL (2.5-4.9)
[2021-02-14 08:43] LABS: CREATINE KINASE 31 IU/L (39-308)
[2021-02-14 08:46] LABS: CREATINE KINASE MB FRACTION < 1.0 ng/mL (0.5-3.6)
[2021-02-14] MEDS: PNEUMOCOCCAL 23-VAL P-SAC VAC 0.5 ML IM ONE ×2 (09:00→11:25)
[2021-02-14] MEDS: INFLUENZA VACCINE 05/PF 0.5 ML SYRINGE IM ONE ×2 (09:00→11:23)
[2021-02-14 09:38] LABS: *AMPHETAMINES SCREEN URINE NEGATIVE (NEGATIVE); *BARBITURATES SCREEN URINE NEGATIVE (NEGATIVE); *BENZODIAZEPINES SCREEN URINE NEGATIVE (NEGATIVE)
[2021-02-14 09:39] LABS: *COCAINE SCREEN URINE NEGATIVE (NEGATIVE); CANNABINOID URINE SCREEN NEGATIVE (NEGATIVE); METHADONE URINE SCREEN NEGATIVE (NEGATIVE); OPIATES URINE SCREEN PRESUMTIVE POSITIVE (NEGATIVE); PHENCYCLIDINE URINE SCREEN NEGATIVE (NEGATIVE)
[2021-02-14] MEDS: FAMOTIDINE 20MG TABLET PO SCH ×2 (09:47→22:20)
[2021-02-14] MEDS: LEVETIRACETAM 500MG TABLET PO SCH ×2 (09:48→22:20)
[2021-02-14] MEDS: LACTULOSE 20G/30ML UDC PO SCH (11:22)
[2021-02-14 12:00] VITALS: BP 106/67
[2021-02-14 16:00] VITALS: BP 109/71
[2021-02-14 20:00] VITALS: BP 104/67
[2021-02-15] VITALS: BP 110/70
[2021-02-15 04:00] VITALS: BP 117/72
[2021-02-15] MEDS: APIXABAN 5 MG TABLET PO SCH (06:42)
[2021-02-15 08:00] VITALS: BP 130/70
[2021-02-15] MEDS: LACTULOSE 20G/30ML UDC PO SCH ×2 (09:00→09:52)
[2021-02-15] MEDS: LEVETIRACETAM 500MG TABLET PO SCH (09:52)
[2021-02-15] MEDS: FAMOTIDINE 20MG TABLET PO SCH (09:52)
[2021-02-15 10:26] VITALS: BP 130/70
== END 2021-02-15 12:50 | disposition home or self-care (01) | DRG 640 ==
LOC: ER 06:58 → 7EST 09:34 → EDBEDREQTM 09:44 → EDBEDREQSVC 09:44 → EDBEDREQ 09:44 → ENRESERV 10:25
PROVIDERS: ADMIT Internal Medicine; ATTEND Internal Medicine
DX: E87.5 Hyperkalemia (principal); N17.0 Acute kidney failure with tubular necrosis; E44.1 Mild protein-calorie malnutrition; M54.50 Low back pain, unspecified; E87.1 Hypo-osmolality and hyponatremia; D64.9 Anemia, unspecified; F03.90 Unspecified dementia, unspecified severity, without behavioral disturbance, psychotic disturbance, mood disturbance, and anxiety; G40.909 Epilepsy, unspecified, not intractable, without status epilepticus; I10 Essential (primary) hypertension; M19.90 Unspecified osteoarthritis, unspecified site; M32.9 Systemic lupus erythematosus, unspecified; Z82.49 Family history of ischemic heart disease and other diseases of the circulatory system; Z90.49 Acquired absence of other specified parts of digestive tract; Z79.01 Long term (current) use of anticoagulants; Z79.899 Other long term (current) drug therapy; Z68.31 Body mass index [BMI] 31.0-31.9, adult
CPT/HCPCS: 36415; 71045; 72148; 73562; 74176; 80053; 80185; 80305; 81003; 82550; 82553; 82607; 82746; 83540; 83550; 83735; 84100; 84439; 84443; 84484; 85025; 90686; 90732; 93005; 93970; 97162; 99285; J1165; J2270; J2405; J7050

== ENCOUNTER 2022-01-09 22:42 | Inpatient (IN) | payer MEDICARE, MEDICAID ==
[~2022-01-09] VITALS: Ht 172.7 cm; Wt 93.0 kg
[~2022-01-09 22:42] MED LIST changes: -PHEN50TA2 PO; +PHEN50TA4 PO
[2022-01-10 00:43] LABS: HEMATOCRIT. 37.1 % (42.0-52.0); HEMOGLOBIN. 12.4 g/dL (14.0-18.0); MEAN CORPUSCULAR HEMOGLOBIN 31.3 pg (28.0-32.0); MEAN CORPUSCULAR VOLUME 93.8 fL (80.0-94.0); MEAN PLATELET VOLUME 9.7 fl (7.4-10.4); PLATELET 164 x1000/uL (130-400); RED BLOOD CELL COUNT 3.95 mill/uL (4.7-6.1); RED CELL DISTRIBUTION WIDTH 14.7 % (11.6-14.6)
[2022-01-10 01:01] LABS: ETHANOL BLOOD < 10 mg/dL
[2022-01-10 01:42] LABS: CHLORIDE 106 mEq/L (98-107)
[2022-01-10 01:49] LABS: PROTHROMBIN TIME 10.9 sec (9.6-11.0)
[2022-01-10 02:25] LABS: CLARITY URINE CLEAR (CLEAR); COLOR URINE YELLOW (YELLOW); KETONES URINE NEGATIVE (NEGATIVE); LEUKOCYTE ESTERASE URINE NEGATIVE (NEGATIVE); NITRITE URINE NEGATIVE (NEGATIVE); OCCULT BLOOD URINE NEGATIVE (NEGATIVE); PH URINE 5.5 (4.5-8.0); PROTEIN URINE NEGATIVE (NEGATIVE); SPECIFIC GRAVITY URINE 1.011 (1.005-1.030); UROBILINOGEN URINE 0.2 E.U./dL (0.2-1.0)
[2022-01-10 02:55] LABS: *AMPHETAMINES SCREEN URINE NEGATIVE (NEGATIVE); *BARBITURATES SCREEN URINE NEGATIVE (NEGATIVE); *BENZODIAZEPINES SCREEN URINE NEGATIVE (NEGATIVE); *COCAINE SCREEN URINE NEGATIVE (NEGATIVE); CANNABINOID URINE SCREEN NEGATIVE (NEGATIVE); METHADONE URINE SCREEN NEGATIVE (NEGATIVE); OPIATES URINE SCREEN NEGATIVE (NEGATIVE); PHENCYCLIDINE URINE SCREEN NEGATIVE (NEGATIVE)
[2022-01-10 03:56] LABS: PLATELET ESTIMATE NORMAL
[2022-01-10 09:56] VITALS: BP 134/81
[2022-01-10 12:00] VITALS: BP 131/77
[2022-01-10] MEDS: SODIUM CHLORIDE 0.9% 1,000 ML IV SCH (12:15)
[2022-01-10] MEDS: APIXABAN 5 MG TABLET PO SCH ×2 (13:24→16:38)
[2022-01-10] MEDS: PHENYTOIN SODIUM EXTENDED 100MG CAPSULE PO SCH ×2 (13:24→20:28)
[2022-01-10 15:48] VITALS: BP 127/70
[2022-01-10 20:00] VITALS: BP 109/71
[2022-01-10] MEDS: ATORVASTATIN CALCIUM 40MG TABLET PO SCH (20:29)
[2022-01-10] MEDS: LEVETIRACETAM 500MG TABLET PO SCH (21:04)
[2022-01-11] VITALS (7 sets, daily range): BP systolic 105–125; BP diastolic 53–84
[2022-01-11] MEDS: SODIUM CHLORIDE 0.9% 1,000 ML IV SCH ×2 (01:42→12:51)
[2022-01-11 07:39] LABS: HEMATOCRIT. 38.4 % (42.0-52.0); HEMOGLOBIN. 12.7 g/dL (14.0-18.0); MEAN CORPUSCULAR HEMOGLOBIN 31.7 pg (28.0-32.0); MEAN CORPUSCULAR VOLUME 95.5 fL (80.0-94.0); MEAN PLATELET VOLUME 9.8 fl (7.4-10.4); PLATELET 162 x1000/uL (130-400); RED BLOOD CELL COUNT 4.02 mill/uL (4.7-6.1); RED CELL DISTRIBUTION WIDTH 14.7 % (11.6-14.6)
[2022-01-11] MEDS: LEVETIRACETAM 500MG TABLET PO SCH ×2 (08:42→16:35)
[2022-01-11] MEDS: APIXABAN 5 MG TABLET PO SCH ×2 (08:43→16:35)
[2022-01-11] MEDS ORDERED: FOLIC ACID 1MG TABLET PO SCH (09:00)
[2022-01-11] MEDS ORDERED: PREDNISONE 5MG TABLET PO SCH (09:00)
[2022-01-11 13:01] LABS: PLATELET ESTIMATE NORMAL
[2022-01-11] MEDS ORDERED: KEPP500 MT (17:17)
[2022-01-11] MEDS: ATORVASTATIN CALCIUM 40MG TABLET PO SCH (20:43)
[2022-01-17] MEDS ORDERED: METHOTREXATE SODIUM 2 . 5MG TABLET PO SCH (07:00)
== END 2022-01-11 22:54 | disposition home or self-care (01) | DRG 101 ==
LOC: ER 22:42 → MICUSO 01-10 02:39 → EDBEDREQ 01-10 02:42 → EDBEDREQTM 01-10 02:42 → 8WST 01-10 09:58
PROVIDERS: ADMIT Internal Medicine; ATTEND Internal Medicine
DX: G40.909 Epilepsy, unspecified, not intractable, without status epilepticus (principal); I69.351 Hemiplegia and hemiparesis following cerebral infarction affecting right dominant side; G93.40 Encephalopathy, unspecified; I10 Essential (primary) hypertension; J45.909 Unspecified asthma, uncomplicated; M32.9 Systemic lupus erythematosus, unspecified; E78.5 Hyperlipidemia, unspecified; Z79.01 Long term (current) use of anticoagulants; Z79.82 Long term (current) use of aspirin; Z82.49 Family history of ischemic heart disease and other diseases of the circulatory system; Z79.899 Other long term (current) drug therapy
CPT/HCPCS: 36415; 70551; 71045; 80048; 80053; 80185; 80305; 80320; 81003; 82962; 84484; 85025; 93306; 99285; J7030; J7512; G0480

== ENCOUNTER 2025-01-02 08:47 | Inpatient (IN) | payer MEDICARE, MEDICAID ==
[~2025-01-02] VITALS: Ht 175.3 cm; Wt 69.9 kg
[~2025-01-02 08:47] MED LIST changes: -ALD2525 MT; +AZAT50TA24 PO; +HYDR200T35 PO; +HYDR25PO MC; +KEPP500 MT; +LEFL10TA19 PO; -MECL-159 MT; +MECL-299 MT; -MEMA28CA PO; +MEMA28CA16 PO; -METH2.5T PO; -PHEN50TA4 PO; -PRED-431 PO; +PRED10TA PO; +SPIR1TAB4 MT
[2025-01-02 08:52] VITALS: O2SAT 100
[2025-01-02] MEDS: SODIUM CHLORIDE 0.9% 1,000 ML IV ONE (09:15)
[2025-01-02] MEDS: LEVETIRACETAM 1000MG PREMIX 100 ML IV ONE (09:15)
[2025-01-02 09:42] LABS: UREA NITROGEN BLOOD 18 mg/dL (9-23)
[2025-01-02 09:47] LABS: ETHANOL BLOOD < 10 mg/dL (<10)
[2025-01-02 10:14] LABS: CREATININE 1.7 mg/dL (0.6-1.3)
[2025-01-02 10:59] LABS: CLARITY URINE TURBID (CLEAR); COLOR URINE YELLOW (YELLOW); GLUCOSE URINE NEGATIVE (NEGATIVE); KETONES URINE NEGATIVE (NEGATIVE); LEUKOCYTE ESTERASE URINE NEGATIVE (NEGATIVE); NITRITE URINE NEGATIVE (NEGATIVE); OCCULT BLOOD URINE NEGATIVE (NEGATIVE); PH URINE >=9.0 (4.5-8.0); PROTEIN URINE TRACE (NEGATIVE); SPECIFIC GRAVITY URINE 1.014 (1.005-1.030); UROBILINOGEN URINE 0.2 E.U./dL (0.2-1.0)
[2025-01-02 11:01] LABS: BASOPHILS % 1.1 % (0.0-2.0); EOSINOPHILS % 1.5 % (0.0-5.0); HEMATOCRIT. 34.0 % (42.0-52.0); HEMOGLOBIN. 11.4 g/dL (14.0-18.0); LYMPHOCYTES % 38.1 % (20.0-50.0); MONOCYTES % 9.0 % (2.0-8.0); NEUTROPHILS % 50.3 % (40.0-76.0); RED BLOOD CELL COUNT 3.78 mill/uL (4.7-6.1); RED CELL DISTRIBUTION WIDTH 14.2 % (11.6-14.6)
[2025-01-02 11:09] LABS: MEAN PLATELET VOLUME 10.5 fl (7.4-10.4)
[2025-01-02 11:10] LABS: PLATELET 128 x1000/uL (130-400)
[2025-01-02 11:11] LABS: *AMPHETAMINES SCREEN URINE NEGATIVE (NEGATIVE); *BARBITURATES SCREEN URINE NEGATIVE (NEGATIVE); *BENZODIAZEPINES SCREEN URINE NEGATIVE (NEGATIVE); *COCAINE SCREEN URINE NEGATIVE (NEGATIVE)
[2025-01-02 11:12] LABS: CANNABINOID URINE SCREEN NEGATIVE (NEGATIVE); ECSTASY MDMA SCREEN URINE NEGATIVE (NEGATIVE); METHADONE URINE SCREEN NEGATIVE (NEGATIVE); OPIATES URINE SCREEN NEGATIVE (NEGATIVE); PHENCYCLIDINE URINE SCREEN NEGATIVE (NEGATIVE)
[2025-01-02 11:16] LABS: AMORPHOUS SEDIMENT URINE 3+ /lpf
[2025-01-02] MEDS: MORPHINE SULFATE 4 MG/ML INJ (FOR IV/IM USE) IV ONE ×2 (11:16→12:30)
[2025-01-02 11:17] LABS: BACTERIA URINE TRACE; RBC URINE NONE SEEN /hpf (0-2); SQUAMOUS EPITHELIAL CELL URINE RARE /lpf (RARE/1+); WBC URINE NONE SEEN /hpf (0-2)
[2025-01-02 11:23] LABS: INFLUENZA TYPE A Presumptive Negative (Pres. Neg.); INFLUENZA TYPE B Presumptive Negative (Pres. Neg.)
[2025-01-02 11:24] LABS: RESPIRATORY SYNCYTIAL VIRUS Not Detected (Not Detectd)
[2025-01-02] MEDS: IOHEXOL-300 100 ML BOTTLE ONE (12:52)
[2025-01-02 15:56] VITALS: BP 94/50; PULSE 40; RESP 13; TEMP 35.9; O2SAT 100
[2025-01-02] MEDS ORDERED: LORAZEPAM 2MG/ML UD SYRINGE IV PRN (16:00)
[2025-01-02 17:06] VITALS: BP 94/50; PULSE 40; RESP 13; TEMP 35.9176
[2025-01-02] MEDS ORDERED: HYDR20TA24 MT (18:30)
[2025-01-02] MEDS ORDERED: OMEP40CA20 PO (19:06)
[2025-01-02] MEDS ORDERED: MIRT-89 PO (19:06)
[2025-01-02] MEDS ORDERED: MULT-1318 PO (19:06)
[2025-01-02] MEDS ORDERED: SPIR1TAB4 PO (19:06)
[2025-01-02] MEDS ORDERED: DOXE10CA2 PO (19:06)
[2025-01-02] MEDS ORDERED: FERR325T30 PO (19:06)
[2025-01-02] MEDS ORDERED: TAMS-54 PO (19:06)
[2025-01-02 20:00] VITALS: BP 96/51; PULSE 45; RESP 20; TEMP 36.2; O2SAT 100
[2025-01-02] MEDS: APIXABAN 5 MG TABLET PO SCH (20:42)
[2025-01-02] MEDS: LEVETIRACETAM 500MG TABLET PO SCH (20:42)
[2025-01-02] MEDS: MEMANTINE HCL 10MG TABLET PO SCH (22:02)
[2025-01-03] VITALS: BP 104/48; PULSE 47; RESP 20; TEMP 35.6; O2SAT 98
[2025-01-03 04:00] VITALS: BP 124/42; PULSE 44; RESP 18; TEMP 36.2; O2SAT 97
[2025-01-03 08:00] VITALS: BP 122/57; PULSE 54; RESP 18; TEMP 36.1; O2SAT 98
[2025-01-03] MEDS: HYDROCORTISONE 10MG TABLET PO SCH (08:10)
[2025-01-03] MEDS: FOLIC ACID 1MG TABLET PO SCH (08:10)
[2025-01-03] MEDS ORDERED: MEMANTINE HCL 5MG TABLET PO SCH (09:00)
[2025-01-03 12:00] VITALS: BP 109/55; PULSE 58; RESP 20; TEMP 36.3; O2SAT 97
[2025-01-03 16:00] VITALS: BP 115/58; PULSE 60; RESP 18; TEMP 36.2; O2SAT 97
[2025-01-03 20:00] VITALS: BP 113/77; PULSE 46; RESP 18; TEMP 36.3; O2SAT 100
[2025-01-04] VITALS: BP 100/54; PULSE 54; RESP 18; TEMP 36.4; O2SAT 97
[2025-01-04 04:00] VITALS: BP 97/51; PULSE 49; RESP 18; TEMP 36.6; O2SAT 97
[2025-01-04 08:00] VITALS: BP 99/56; PULSE 52; RESP 18; TEMP 36.1; O2SAT 100
[2025-01-04 09:48] LABS: VITAMIN B12 SERUM 471 pg/mL (211-911)
[2025-01-04 11:49] LABS: CREATININE 1.5 mg/dL (0.6-1.3); UREA NITROGEN BLOOD 17.0 mg/dL (9-23)
[2025-01-04 12:26] VITALS: BP 116/69; PULSE 62; RESP 18; TEMP 97.1
[2025-01-04 12:53] VITALS: BP 116/69; PULSE 62; RESP 18; TEMP 36.2; O2SAT 99
== END 2025-01-04 14:26 | disposition home or self-care (01) | DRG 100 ==
LOC: ER 08:47 → 7WST 12:21 → EDBEDREQTM 12:22 → EDBEDREQ 12:22 → ENRESERV 13:45
PROVIDERS: ADMIT Internal Medicine; ATTEND Internal Medicine
PROC: 4A00X4Z Measurement of Central Nervous Electrical Activity, External Approach (ICD-10-PCS; principal; 2025-01-04)
DX: G40.909 Epilepsy, unspecified, not intractable, without status epilepticus (principal); N17.0 Acute kidney failure with tubular necrosis; I69.351 Hemiplegia and hemiparesis following cerebral infarction affecting right dominant side; D64.9 Anemia, unspecified; I10 Essential (primary) hypertension; E11.9 Type 2 diabetes mellitus without complications; K76.0 Fatty (change of) liver, not elsewhere classified; M32.9 Systemic lupus erythematosus, unspecified; Z82.49 Family history of ischemic heart disease and other diseases of the circulatory system
CPT/HCPCS: 36415; 71045; 74177; 80048; 80305; 80320; 81003; 82607; 83735; 84443; 85025; 87420; 87804; 93005; 93970; 95816; 99285; A4606; J1953; J2270; J7030; Q9967; G0480